=== PATIENT | female | born 1960 | race Caucasian/White ===

== ENCOUNTER 2023-03-26 06:12 | Observation (INO) ==
--- NOTE | 2023-02-22 12:23 | PAT Medication Instructions ---
Medication Instructions Date of Service February 22, 2023 Home Medications L.acid-B.animalis-B.bifidum-B.infantis 50 billion cell capsule,del rel (Fortify [place] Probiotic) 1 cap PO QPM calcium carbonate 600 mg calcium (1,500 mg) tablet (Calcium) 600 mg PO QPM cholecalciferol (vitamin D3) 125 mcg (5,000 unit) capsule 125 mcg PO QPM coenzyme Q10 100 mg capsule (Co Q-10) 100 mg PO QPM diclofenac sodium 1 % topical gel (Voltaren Arthritis Pain) 2 g topical HS gabapentin 100 mg capsule 200 mg PO DAILY PRN methocarbamol 500 mg tablet 500 mg PO DAILY PRN multivit with mdptsyxa-vyth-CZ-lutein 8 mg iron-400 mcg-300 mcg tablet (Centrum Silver Women) 1 tab PO QPM pantoprazole 40 mg tablet,delayed release (Protonix) 40 mg PO BID rosuvastatin 5 mg tablet (Crestor) 5 mg PO HS vitamin B12 2,500 mcg-folic acid 400 mcg disintegrating tablet 1 tab PO 2XWK metoprolol succinate 25 mg tablet,extended release 24 hr (Toprol XL) 25 mg PO BID potassium chloride 10 mEq capsule,extended release 10 meq PO TID Continue as directed gabapentin 100 mg capsule 200 mg PO DAILY PRN(if needed) ASK your surgeon for instructions diclofenac sodium 1 % topical gel (Voltaren Arthritis Pain) 2 g topical HS STOP taking 2 weeks before surgery (or as soon as possible if surgery is within 2 weeks) L.acid-B.animalis-B.bifidum-B.infantis 50 billion cell capsule,del rel (Fortify [place] Probiotic) 1 cap PO QPM coenzyme Q10 100 mg capsule (Co Q-10) 100 mg PO QPM DO NOT take the morning of surgery methocarbamol 500 mg tablet 500 mg PO DAILY PRN vitamin B12 2,500 mcg-folic acid 400 mcg disintegrating tablet 1 tab PO 2XWK potassium chloride 10 mEq capsule,extended release 10 meq PO TID Take morning of surgery With a small sip of water, OTHERWISE NOTHING TO EAT OR DRINK AFTER MIDNIGHT: pantoprazole 40 mg tablet,delayed release (Protonix) 40 mg PO BID metoprolol succinate 25 mg tablet,extended release 24 hr (Toprol XL) 25 mg PO BID Take evening before surgery calcium carbonate 600 mg calcium (1,500 mg) tablet (Calcium) 600 mg PO QPM cholecalciferol (vitamin D3) 125 mcg (5,000 unit) capsule 125 mcg PO QPM multivit with cfaqyuxu-nfqi-VB-lutein 8 mg iron-400 mcg-300 mcg tablet (Centrum Silver Women) 1 tab PO QPM pantoprazole 40 mg tablet,delayed release (Protonix) 40 mg PO BID rosuvastatin 5 mg tablet (Crestor) 5 mg PO HS metoprolol succinate 25 mg tablet,extended release 24 hr (Toprol XL) 25 mg PO BID potassium chloride 10 mEq capsule,extended release 10 meq PO TID Other Notes If you have any questions please call us at [phone] or [phone] or [phone] or [phone]
--- NOTE | 2023-02-28 14:30 | Anesthesiology Consultation ---
Date of Service February 28, 2023 Assessment & Plan (1) Encounter for pre-operative examination: Plan - no chlorhexidine wipes provided given allergy. - cardiology 01/03/23: "...phone visit on 07/13/22. Prior to this patient had complaints of chest pain which was short-lived but occurring more frequently. Pain was typical for angina, pain was felt to be related to anxiety. To assure coronary artery disease was not contributing, stress echocardiogram was obtain ed...negative for ischemia...notes palps are infreq. monitors bp at home-have been wnl...denies complaints of chest discomfort since her last office visit...minimal palpitations which are not bothersome.. stress test which indicated ECG changes but imaging was negative for ischemia...repeat stress test or left heart catheterization is not indicated at this time..." Outpatient joint assessment: Patient is currently scheduled for inpatient pathway. If re-evaluated pending system levels during current pandemic/surgeon requests outpatient pathway, patient is acceptable candidate for outpatient julito int program from anesthesia standpoint pending surgeon's office assessment of pt motivation/support/completion of same day joint program preop requirements. Chart Review Chart Review: Acceptable Risk for Surgery and Patient seen in Pre Admission Testing Teaching & Discussion Pre-Anesthesia Teaching/Discussion Notes: Instructed NPO after midnight before surgery, except medications with 15 cc of water. Medication instructions provided according to the PAT guidelines. History Surgery Operation Date: 03/26/23 12:50 Proposed Procedures p Right Total Knee Arthroplasty - Bonifacio Gilbert, Height/Weight Height: 5 ft 5 in Weight: 61.4 kg Allergies Allergy/AdvReac Type Severity Reaction Status Date / Time chlorhexidine Allergy Mild Rash Verified 02/19/23 15:32 Penicillins Allergy Mild Rash Verified 02/19/23 15:32 ranitidine Allergy Mild Rash Verified 02/19/23 15:32 Sulfa (Sulfonamide Allergy Mild Rash Verified 02/19/23 15:32 Antibiotics) clindamycin AdvReac Mild Abdominal Verified 02/19/23 15:32 Pain Medications Home Medications Medication Instructions Recorded Confirmed Last Taken L.acid-B.animalis-B.bifidum-B.infantis 1 cap PO QPM 06/01/22 02/19/23 Unknown 50 billion cell capsule,del rel (Fortify [place] Probiotic) calcium carbonate 600 mg calcium 600 mg PO QPM 06/01/22 02/19/23 Unknown (1,500 mg) tablet (Calcium) cholecalciferol (vitamin D3) 125 125 mcg PO QPM 06/01/22 02/19/23 Unknown mcg (5,000 unit) capsule coenzyme Q10 100 mg capsule (Co 100 mg PO QPM 06/01/22 02/19/23 Unknown Q-10) diclofenac sodium 1 % topical gel 2 g topical HS 06/01/22 02/19/23 Unknown (Voltaren Arthritis Pain) gabapentin 100 mg capsule 200 mg PO DAILY PRN Pain 06/01/22 02/19/23 Unknown methocarbamol 500 mg tablet 500 mg PO DAILY PRN Pain 06/01/22 02/19/23 Unknown multivit with 1 tab PO QPM 06/01/22 02/19/23 Unknown ecwnkrbs-vlfm-KC-lutein 8 mg iron-400 mcg-300 mcg tablet (Centrum Silver Women) pantoprazole 40 mg tablet,delayed 40 mg PO BID 06/01/22 02/19/23 Unknown release (Protonix) rosuvastatin 5 mg tablet (Crestor) 5 mg PO HS 06/01/22 02/19/23 Unknown vitamin B12 2,500 mcg-folic acid 1 tab PO 2XWK 06/01/22 02/19/23 Unknown 400 mcg disintegrating tablet metoprolol succinate 25 mg 25 mg PO BID 10/10/22 02/19/23 Unknown tablet,extended release 24 hr (Toprol XL) potassium chloride 10 mEq 10 meq PO TID 12/14/22 02/19/23 Unknown capsule,extended release acetaminophen 325 mg tablet 325 mg PO QID PRN Pain 02/28/23 02/28/23 Unknown ibuprofen 200 mg tablet 200 mg PO Q6H PRN Pain 02/28/23 02/28/23 Unknown Additional Notes: Pt states takes ibuprofen and acetaminophen prn pain. She was advised to check ibuprofen instructions with surgeon and can continue acetaminophen if needed. She denied additional medications or supplements. Instructions were added to provided medication instruction paper. She verbalized full understanding and agreement, denied questions or concerns. Past Medical History Medical History GERD (gastroesophageal reflux disease) rare symptoms, managed with medication and diet, stable per pt High cholesterol HTN (hypertension), benign controlled, stable per pt Hx of gastritis Lumbar spondylosis Piriformis syndrome Scoliosis "MILD" Patient denies h/o stroke, seizures, heart attack, heart failure, DM, blood clots or blood transfusions. Exercise / Class Metabolic Activity II 4-5 Yardwork/Stairs/Walk up hill (denies chest discomfort or shortness of breath with 1 FOS) Past Family History Family History Mother Kidney disease Hypertension Father Myocardial infarction Other No family history of adverse response to anesthesia Past Surgical History Surgical History History of colonoscopy History of esophagogastroduodenoscopy (EGD) History of tonsillectomy Nausea and vomiting after administration of anesthetic agent slow to wake up-denies re-intubation; vomiting with tonsillectomy; denies needing scop patch S/P laparotomy [place] teeth removed Past Anesthesia History No Family Hx of Anesthesia Complications and Other (slow to wake, denies needing re-intubation) History of PONV History of PONV (denies needing scop patch) and Hx of Motion Sickness Social History Smoking Status: Never smoker Do You Dip or Chew Tobacco: No Hx Alcohol Use: Yes Alcohol type: wine alcohol intake frequency: a few times a month substance use type: does not use Review of Systems Snoring, denies witnessed apneas. Patient denies chest pain, shortness of breath, dyspnea on exertion, fever, chills, cough, wheezing, or palpitations. Physical Exam Vital Signs Vitals BP 137/82 P 84 TEMP 98.2 SP02 98% on RA RESP 18 Physical Full cervical extension range of motion without pain TMD 3.5 finger breadths Mallampati Score 1 Dentition: two caps, denies chipped or loose teeth, implants or bridges Lungs: normal respiratory effort. Clear throughout to auscultation, no adventitious breath sounds Cardiac: regular rate and rhythm, no murmurs noted Carotid arteries: negative bruit bilat Lab Results Anesthesia Preop Results Results Anesthesia Widget: WBC 5.32 K/ul (4.8-10.8) 02/28/23 Hgb 13.0 g/dl (12.0-16.0) 02/28/23 Hct 38.2 % (37.0-47.0) 02/28/23 Plt 218 K/uL (130-400) 02/28/23 Na 139 mmol/L (136-145) 02/28/23 K 4.2 mmol/L (3.5-5.1) 02/28/23 Cl 104 mmol/L (98-107) 02/28/23 CO2 29 mmol/L (21-32) 02/28/23 BUN 13 mg/dl (6-23) 02/28/23 Creat 0.76 mg/dl (0.6-1.2) 02/28/23 Glucose Level 92 mg/dl (70-99(Fasting)) 02/28/23 PT 10.5 Seconds (9.0-12.0) 02/28/23 PTT 26.9 Seconds (21.0-31.0) 02/28/23 INR 1.0 (0.9-1.1) 02/28/23 Blood Type B Positive 02/28/23 Antibody Screen NEGATIVE 02/28/23 Testing Electrocardiogram Date: 06/14/22 Sinus rhythm, rate 62 bpm Chest X-Ray Date: 02/28/23 No lines and tubes are seen. The cardiomediastinal silhouette is normal. The lungs are clear. No evidence of pleural effusion or pneumothorax. IMPRESSION: No acute chest disease. Echocardiogram Date: 06/13/21 EF 65% No LV regional wall motion abnormalities No significant valvular pathology Stress Test Date: 07/05/22 Exercise METS 10 MPHR 92% Normal No evidence of stress-induced ischemia EF 55-60% No LV wall motion abnormalities COVID-19 Risk Screen Screening Information COVID-19 Screen Date: 02/28/23 Exposure 21 Days Family/Household +COVID Last 21 Days: No Exposure 10 Days Any COVID Exposure Last 10 Days: No Symptoms Last 10 Days Experienced COVID Sx Last 10 Days: No + COVID 0-90 Days COVID + in Last 0-90 Days: No
[~2023-03-26 06:12] MED LIST: ACETAMINOPHEN 500 MG TAB PO SCH; FAMOTIDINE 20 MG TAB PO SCH; GABAPENTIN 300 MG CAP PO SCH; LR 500ML BOLUS, THEN 15ML/HR IV SCH; LR 60ML/HR IV SCH; ORTHO JOINT MIX INFIL SCH; TRANEXAMIC ACID 1,000 MG **IV Intra-op IV SCH; TRANEXAMIC ACID 1,000 MG **IV Pre-op IV SCH; ceFAZolin 2000MG 2,000 MG/15 ML SYR IV SCH; dexAMETHasone 4 MG TAB PO SCH
[2023-03-26] MEDS ORDERED: BUPIVACAINE 0.5 % 5 MG/1 ML PF 10ML VIAL ONE (06:22)
[2023-03-26] MEDS ORDERED: ROPIVACAINE 0.5% 5 MG/ML 30 ML VIAL ONE (06:22)
--- NOTE | 2023-03-26 06:45 | History & Physical Bridge Note ---
Date of Service March 26, 2023 History & Physical Bridge Note I have examined the patient, reviewed the History & Physical and in the interval since the performance of the History & Physical I have noted the following changes of clinical significance: no changes noted
[2023-03-26] MEDS ORDERED: ORTHO JOINT ANESTHETIC ONE (07:04)
[2023-03-26] MEDS ORDERED: ePHEDrine sulfate 50 MG/ML AMP IV PRN (07:15)
[2023-03-26] MEDS ORDERED: ATROPINE SULFATE 0.1 MG/ML 10ML SYR IV PRN (07:15)
[2023-03-26] MEDS ORDERED: ONDANSETRON INJ 2 MG/ML 2 ML VIAL IV PRN (07:15)
[2023-03-26] MEDS ORDERED: fentaNYL citrate PF 100 MCG/2 ML VIAL IV PRN (07:15)
[2023-03-26] MEDS ORDERED: MIDAZOLAM HCL 1 MG/ML 2ML VIAL ONE (07:17)
[2023-03-26] MEDS ORDERED: fentaNYL citrate PF 100 MCG/2 ML VIAL ONE (07:18)
[2023-03-26] MEDS ORDERED: PROPOFOL IV EMULSION 10 MG/ML 20 ML VIAL IV ONE ×3 (08:30→08:58)
--- NOTE | 2023-03-26 09:31 | Operative Report ---
PG Post Operative Report Pre & Post Diagnosis Operation Date: 03/26/23 08:00 Pre-Op Diagnosis: Degenerative Joint Disease Right Knee Post-Op Diagnosis: Degenerative Joint Disease Right Knee I identified the patient and participated in the time-out.: Yes Procedure Operation Date: 03/26/23 08:00 Actual Procedures p Right Total Knee Arthroplasty(Right) - Bonifacio Gilbert DO Surgeon Bonifacio Gilbert DO [employer] Bonifacio Montenegro PA-C Estimated Blood Loss 30 Findings Consistent with Post-Op Diagnosis Specimens Right femoral and tibial bone Description of Procedure Implants used: I used a Mariajose Persona total knee arthroplasty system with a size 9 narrow femur, D tibia, 28 oval patella, and a size 10 medial congruent polyethylene bearing. All components were cemented in place with Biomet cement. Ilsa arrived [facility] for the above procedure. She was seen in the preoperative holding area and the operative extremity was identified and signed. She was given a preoperative antibiotic, TXA, a spinal anesthetic and an adductor nerve block. She was taken back to the operating room and laid on the table in supine position. She was given basic sedation. The operative knee was then prepped and draped in sterile fashion. A timeout was done, and the patient and the operative extremity was properly identified. A midline incision was made directly over the patella. Dissection was taken down to the extensor mechanism. A midvastus arthrotomy was used. The medial retinaculum was released and the fat pad was mostly excised. The knee was flexed and the ACL, PCL, and meniscus were removed. A drill was sent down the center of the femoral canal followed by an intramedullary julia. Off that julia a distal femoral cutting block was placed. 9 mm was resected off the distal femur at 5 of valgus. A posterior referencing AP sizing guide was then placed on the distal femur. The femur measured to be a size 9. 2 drill holes were placed in 3 of external rotation. A 4-in-1 cutting block was then impacted into place. Anterior, posterior, and chamfer cuts were then made. The proximal tibia was then exposed. An external tibial alignment guide was placed. A tibial cut guide was then anchored in place and the proximal tibia was then resected. The posterior aspect of the knee was then opened up and any additional meniscus fragments and osteophytes were removed. The tibia measured to be a size E. The tibial plate was then placed in the appropriate rotation and the tibia was drilled and punched. Trial components were then placed. I used a size 10 medial congruent polyethylene insert. The knee was brought through a full range of motion and felt to be stable. The peg holes for the femoral component were then drilled. The patella was then everted and 9 mm was resected off the posterior aspect of the patella. The patella measured to be a size 28 oval. 3 peg holes were then drilled. A trial patella was placed. The knee was once again brought through a full range of motion and felt to be stable. Trial components were then removed. The surrounding soft tissues were injected with 100 cc of an orthopedic pain control cocktail. All components were then cemented into place with Biomet cement. The final polyethylene insert was then snapped into place. Once cement was dry the tourniquet was deflated. Hemostasis was obtained. A dilute betadyne lavage was then done for 3 minutes. The joint was then irrigated with normal saline solution. The midvastus arth rotomy was then closed with #1 Vicryl suture. The skin was closed with 2-0 Vicryl, 3-0V lock suture, and kit. A soft compressive dressing was placed. She was then transferred to a hospital bed and taken to the postanesthesia care unit in stable condition. She tolerated the procedure well. Bonifacio Montenegro PA-C, was present for the entire procedure. He was critical for patient positioning, prepping, draping, retraction exposure, wound closure and application of sterile dressing. I attest to the content of the Intraoperative Record and any orders documented therein. Any exceptions are noted below.
--- NOTE | 2023-03-26 10:30 | Anesthesiology Progress Note ---
Date of Service March 26, 2023 Anesthesia Post Procedure Vital Signs Vital Signs: Temp Pulse Pulse Resp BP Pulse Ox O2 Del Method 03/26/23 10:25 66 14 131/78 98 Room Air 03/26/23 10:15 65 12 126/75 100 Oxymask 03/26/23 10:05 63 14 127/73 100 Oxymask 03/26/23 09:57 96.8 F L 69 14 123/73 100 Oxymask 03/26/23 07:01 98.2 F 77 20 166/87 H 100 Room Air O2 Flow Rate 03/26/23 10:25 03/26/23 10:15 6 03/26/23 10:05 6 03/26/23 09:57 10 03/26/23 07:01 Transfer of Care Handoff Completed per policy Notes Mental Status: alert / awake / arousable and participated in evaluation Patient Amnestic to Procedure: Yes Nausea / Vomiting: adequately controlled Pain: adequately controlled Airway Patency, RR, SpO2: stable & adequate BP & HR: stable & adequate Hydration State: stable & adequate Neuraxial Anesthesia: was administered and sensory block is resolving Anesthetic Complications: no major complications apparent and Pt Satisfied with anesthetic care
[2023-03-26] MEDS ORDERED: METOCLOPRAMIDE HCL INJ 5 MG/ML 2 ML VIAL IV PRN (11:03)
[2023-03-26] MEDS ORDERED: GABAPENTIN 100 MG CAP PO PRN (11:03)
[2023-03-26] MEDS ORDERED: HYDROmorphone INJ 0.5 MG/0.5 ML SYR IV PRN (11:03)
[2023-03-26] MEDS ORDERED: METHOCARBAMOL 500 MG TABLET PO PRN (11:03)
[2023-03-26] MEDS ORDERED: NALOXONE HCL 0.4 MG/1 ML VIAL/CARP IV PRN (11:03)
[2023-03-26] MEDS ORDERED: MAGNESIUM HYDROXIDE SUSP 30 ML UDC PO PRN (11:03)
[2023-03-26] MEDS ORDERED: bisacodyL 10 MG SUPP PR PRN (11:03)
--- NOTE | 2023-03-26 11:13 | XRay Report ---
XR knee RT 1 or 2V routine HISTORY: 62 years-old Female Surgical Post Op right knee arthroplasty COMPARISON: 02/28/2023 TECHNIQUE: 2 views of the right knee FINDINGS: Total joint arthroplasty with patellar resurfacing. Anterior midline skin kit are present along w ith expected postoperative soft tissue swelling with deep tissue air. No acute fracture, alignment or opaque foreign body. IMPRESSION: Total joint arthroplasty with expected postoperative changes. ACT 112: Negative or not required by law. The above report was generated using voice recognition software. It may contain grammatical, syntax o r spelling errors. Electronically signed by: Dmitry Albrecht M.D. 03/26/2023 11:12 AM
[2023-03-26] MEDS: SODIUM CHLORIDE 0.9% 1000ML 1,000 ML IV SCH ×2 (11:34→22:38)
[2023-03-26] MEDS: ONDANSETRON INJ 2 MG/ML 2 ML VIAL IV PRN ×2 (11:35→17:34)
[2023-03-26] MEDS: KETOROLAC 30 MG/ML VIAL IV SCH ×3 (12:31→23:54)
[2023-03-26] MEDS: ACETAMINOPHEN 500 MG TAB PO SCH ×2 (14:36→22:41)
[2023-03-26] MEDS: POTASSIUM CHLORIDE 10 MEQ TABCR PO SCH ×2 (14:36→17:39)
[2023-03-26] MEDS: oxyCODONE HCL IR 5 MG TAB (IMMEDIATE RELEASE) PO PRN ×2 (15:24→22:39)
[2023-03-26] MEDS: ceFAZolin 2000MG 2,000 MG/15 ML SYR IV SCH ×2 (17:27→23:53)
[2023-03-26] MEDS ORDERED: ROSUVASTATIN CALCIUM 5 MG TAB PO SCH (21:00)
[2023-03-26] MEDS ORDERED: SENNA 8.6 MG TAB PO SCH (21:00)
[2023-03-26] MEDS: METOPROLOL SUCC 25MG EXT REL TAB PO SCH (22:40)
[2023-03-26] MEDS: ASPIRIN 81 MG ECTAB PO SCH (22:42)
[2023-03-26] MEDS: DOCUSATE SODIUM 100 MG CAP PO SCH (22:43)
[2023-03-27] MEDS: ACETAMINOPHEN 500 MG TAB PO SCH (06:06)
[2023-03-27] MEDS: KETOROLAC 30 MG/ML VIAL IV SCH (06:06)
--- NOTE | 2023-03-27 06:56 | Orthopedic Progress Note ---
Date of Service March 27, 2023 Assessment & Plan (1) Status post right knee replacement: Overall she is doing very well. She is not having much pain in the right knee. She is on aspirin for DVT prophylaxis. She will be seen by physical therapy today for ambulation and range of motion exercises. She can be discharged home later today. She will follow-up with orthopedics in 2 weeks. Tina Santizo was seen and examined at bedside this morning. Overall she is doing very well. She is not having much pain in the right knee. She is been up and ambulating to the bathroom. She has no complaints.. Review of Systems All systems reviewed & are unremarkable except as noted in HPI & below. Physical Exam On physical examination of the right knee, the dressing is clean and dry. Her leg is out full extension. She has active dorsiflexion plantarflexion of the right ankle.. Results & Data Results & Data Laboratory Results . Diagnostic Findings Postoperative x-rays of the right knee show the prosthesis to be in anatomic alignment without any evidence of fracture, dislocation, or loosening.. PG Care Time/CCT Total # of Minutes Spent Total Time Spent with Patient: Total time spent is greater than 50% in coordination of care (as documented) at patient's floor/unit and/or counseling patient: Coding Level of Care Code 86837 Post Operative Follow-Up Diagnoses Status post right knee replacement Z96.651
--- NOTE | 2023-03-27 06:57 | Discharge Summary ---
Date of Service March 27, 2023 Principal Diagnosis Same as "Discharge Diagnosis" noted below under Discharge Instructions. Discharge Exam On physical examination of the right knee, the dressing is clean and dry. Her leg is out full extension. She has active dorsiflexion plantarflexion of the right ankle.. Discharge Data Procedures Performed Operation Date: 03/26/23 08:00 Actual Procedures p Right Total Knee Arthroplasty(Right) - Bonifacio Gilbert DO Ordered Studies 03/26/23 05:00 US - OR guided needle placemen Routine Hospital Course (1) Status post right knee replacement: On March 26, 2023 Darlyn arrived at [facility] and underwent a right knee replaced without complication. She had a spinal anesthetic. Postoperatively she was started on aspirin for DVT prophylaxis and transferred to the general orthopedic floors. Her hospital course was uneventful. On postop day #1, her vital signs were stable and her pain was well controlled. She was able to participate well with physical therapy doing ambulation and range of motion exercises. She was then discharged home. She will follow-up orthopedics in 2 weeks. PG Care Time/CCT Total # of Minutes Spent Total Time Spent with Patient: Total time spent is greater than 50% in coordination of care (as documented) at patient's floor/unit and/or counseling patient: Discharge Plan Discharge Items Patient Disposition: Home - Home Health Services Reason For Visit: DJD Right Knee Discharge Diagnosis: Right knee replacement Activity: Per Instructions section Non-emergency contact: Surgeon Call non-emergency contact if: your wound has increased redness and your wound has increased drainage Follow-up/Referrals: Bo Hernandez DO [Primary Care Provider] - Diet: Regular Addtl Attending Provider Instructions: Activity and Therapy Recommendations: * If you are using [facility] then therapy will be provided at your home until they feel you have accomplished all of your goals. * If you are using [facility] then Physical Therapy will be provided until they feel you are ready to start Outpatient Physical Therapy. * If you are not using home therapy then Outpatient Physical Therapy should start about 3-5 days from your day of surgery. Therapy will last about 6-10 weeks * It is important not to put a pillow under your knee when you are relaxing or sleeping. It is just as important to make sure you are getting your knee perfectly straight as it is to regain your knee bend. * You were shown a series of exercises in the hospital. Do these exercises three times each day including the exercises you were shown in physical therapy. * Get up and walk several times each day. For the first four weeks, try not to stand or walk for more than one hour at a time. If you do stand or walk for more than one hour, you will not hurt anything, but your leg will likely swell. * As you feel comfortable, you may change from the walker or crutches to a cane and then to independent walking. Medications: * Narcotic You will likely be sent home from the hospital with a prescription for the narcotic pain medication that worked best throughout your stay. * Aspirin Most patients will be required to take Aspirin 81mg twice a day for 6 weeks after surgery. This is obtained [id number] and a prescription is not necessary. * Other medications may be prescribed for specific circumstances. If you have any questions, please call the office at . * Resume previous home medications unless otherwise instructed TEDs/Elastic Stockings: The white elastic stockings help limit swelling and prevent blood clots from forming in your legs.~ The more you wear them, the more they work. Wear them for six weeks. Dressing Care: The dressing can be changed after physical therapy on postop day #1. Daily dry dressing changes for a few days, especially if the incision is still draining some. If the incision is not draining then you may leave the kit open to air. If there is a little bit of drainage or if the kit are getting stuck on your clothing then cover the incision with a dry dressing. The kit will be removed at your 2 week follow-up appointment. Showering: You may shower 5 days from the day of surgery as long as the incision is no longer draining. You may shower with the kit exposed. Let soapy water run over the kit and pat them dry. Do not scrub or soak the incision. Things To Watch For: * Drainage from the incision site that occurs more than one week after your surgery. * Increased redness at the incision site. * Fever above 102 degrees Fahrenheit. * Unusual chest pain or shortness of breath. * Call [facility] at with any of the above problems Follow-Up Visit: Follow-up with Dr. Gilbert's PA (Bonifacio Montenegro) 2-3 weeks after your day of surgery. He will remove your kit and answer any questions. If you have any additional questions or concerns, Dr Gilbert is usually in the office at the same time and will be available An appointment was probably scheduled when you signed-up for surgery in the office. If you have any questions call Office Instructions: More detailed instructions as well as Frequently Asked Questions were provided in a folder by our office when you signed-up for surgery. Please review these instructions when you get home. If you have any further questions or concerns, please feel free to call the office at [phone] Pending Studies at Discharge: No Stand-Alone Forms: My Discera, Smoking Cessation Medications and DC Order Prescriptions: New aspirin 81 mg Tablet,Delayed Release (Dr/Ec) 81 mg PO BID 42 Days Qty: 84 0RF oxycodone-acetaminophen 5-325 mg tablet 1 tab PO Q6H PRN (Reason: pain) Qty: 30 0RF Continued potassium chloride 10 mEq capsule, extended release 10 meq PO TID pantoprazole [Protonix] 40 mg tablet,delayed release (DR/EC) 40 mg PO BID rosuvastatin [Crestor] 5 mg tablet 5 mg PO HS gabapentin 100 mg capsule 200 mg PO DAILY PRN (Reason: Pain) methocarbamol 500 mg tablet 500 mg PO DAILY PRN (Reason: Pain) cholecalciferol (vitamin D3) 125 mcg (5,000 unit) capsule 125 mcg PO QPM Fortify [place] Probiotic 50 billion cell capsule,delayed release(DR/EC) 1 cap PO QPM Centrum Silver Women 8 mg iron-400 mcg-300 mcg tablet 1 tab PO QPM calcium carbonate [Calcium 600] 600 mg calcium (1,500 mg) tablet 600 mg PO QPM vitamin Q28-tldep acid 2,500-400 mcg tablet,disintegrating 1 tab PO 2XWK coenzyme Q10 [Co Q-10] 100 mg capsule 100 mg PO QPM diclofenac sodium [Voltaren Arthritis Pain] 1 % gel 2 g topical HS Rx Instructions: apply to single elbow, wrist or hand; for hand includes palm/fingers/back of hand metoprolol succinate [Toprol XL] 25 mg tablet extended release 24 hr 25 mg PO BID acetaminophen 325 mg Tablet 325 mg PO QID PRN (Reason: Pain) ibuprofen 200 mg Tablet 200 mg PO Q6H PRN (Reason: Pain) Admission Data Admit Date/Time: 03/26/23 09:58 Attending Provider: Bonifacio Gilbert Admit Provider: Bonifacio Gilbert Primary Care Provider: Bo Hernandez
[2023-03-27] MEDS ORDERED: dexAMETHasone 4 MG TAB PO SCH (08:00)
[2023-03-27] MEDS ORDERED: FOLIC ACID 400 MCG TAB PO SCH (09:00)
[2023-03-27] MEDS ORDERED: MULTIVITAMIN TAB PO SCH (09:00)
[2023-03-27] MEDS ORDERED: CYANOCOBALAMIN (B-12) 2,500 MCG TABLET PO SCH (09:00)
[2023-03-27] MEDS: POTASSIUM CHLORIDE 10 MEQ TABCR PO SCH (09:09)
[2023-03-27] MEDS: DOCUSATE SODIUM 100 MG CAP PO SCH (09:09)
[2023-03-27] MEDS: ASPIRIN 81 MG ECTAB PO SCH (09:10)
[2023-03-27] MEDS: METOPROLOL SUCC 25MG EXT REL TAB PO SCH (09:10)
[2023-03-27] MEDS: oxyCODONE HCL IR 5 MG TAB (IMMEDIATE RELEASE) PO PRN ×2 (09:40→09:42)
== END 2023-03-27 10:28 | disposition home health service (06) ==
LOC: ASU 06:12 → 3E 06:12